=== PATIENT | female | born 1950 | race Caucasian/White ===

== ENCOUNTER 2017-09-07 08:10 | Day surgery (SDC) | payer MEDICARE, OTHER ==
[~2017-09-07 08:10] MED LIST: ACETAMINOPHEN500 M1 PO; AFINITOR10 MG PO; ARIMIDEX1 MG PO; AROMASIN25 MG PO; BACTRIM DS1 TAB PO; CALCIUM CITRATE PLUS PO; CEFADROXIL500 MG PO; CEPHALEXIN500 MG PO; CIMETIDINE400 MG PO; CLOBETASOL0.051 EX; D31000 UNIT PO; DOXYCYCL HYC100 MG PO; EQL POTASSIUM595 MG PO; FASLODEX250 M1 IM; FLUZONE SPLT1 M1 IM; IBRANCE PO; KEFLEX500 M1 PO; LORTAB 5/3255 MG PO; MULTI VIT PO; NO HOME MEDS; STOOL SOFTENER100 MG PO; TURKEY TAIL MUSHROOM PO; VITAMIN B-121000 MC1 SL; XGEVA SC; [UNRECOGNIZED DRUG - CODE] PO; [UNRECOGNIZED DRUG - OTHER] PO; [UNRECOGNIZED DRUG - OTHER] RE
[2017-09-07 12:14] VITALS: BP 121/57
[2017-09-07] MEDS ORDERED: NORCO1 TA2 PO (12:21)
[2017-09-07] MEDS ORDERED: KEFLEX500 MG PO (12:21)
== END 2017-09-07 12:45 | disposition home or self-care (01) ==
LOC: ORM 08:10
PROVIDERS: ATTEND Podiatrist Foot & Ankle Surgery
PROC: 0QBQ0ZZ Excision of Right Toe Phalanx, Open Approach (ICD-10-PCS; principal; 2017-09-07)
PROC: 0QBQ0ZZ Excision of Right Toe Phalanx, Open Approach (ICD-10-PCS; 2017-09-07)
PROC: 0LNV3ZZ Release Right Foot Tendon, Percutaneous Approach (ICD-10-PCS; 2017-09-07)
PROC: 0SN Lower Joints, Release (ICD-10-PCS; 2017-09-07)
PROC: 0HBMXZZ Excision of Right Foot Skin, External Approach (ICD-10-PCS; 2017-09-07)
DX: M20.41 Other hammer toe(s) (acquired), right foot (principal); L85.9 Epidermal thickening, unspecified

== ENCOUNTER 2017-10-26 08:18 | Emergency (ER) | payer MEDICARE, OTHER ==
[~2017-10-26] VITALS: Ht 157.5 cm; Wt 70.0 kg
[~2017-10-26 08:18] MED LIST changes: +KEFLEX500 MG PO; +NORCO1 TA2 PO
[2017-10-26] MEDS ORDERED: COREG3.125 MG PO (08:53)
[2017-10-26] MEDS ORDERED: TOBRADEX OPTH OU (09:05)
[2017-10-26 09:13] VITALS: BP 140/57
== END 2017-10-26 09:13 | disposition home or self-care (01) ==
LOC: ED 08:18
DX: L30.8 Other specified dermatitis (principal); H57.13 Ocular pain, bilateral

== ENCOUNTER 2018-07-07 13:12 | Emergency (ER) | payer MEDICARE, OTHER ==
[~2018-07-07] VITALS: Ht 157.5 cm; Wt 70.0 kg
[~2018-07-07 13:12] MED LIST changes: +COREG3.125 MG PO; +TOBRADEX OPTH OU
[2018-07-07] MEDS ORDERED: VITAMIN B CO PO (13:45)
[2018-07-07] MEDS ORDERED: IBRANCE (13:49)
[2018-07-07] MEDS ORDERED: IRON (13:52)
[2018-07-07] MEDS ORDERED: MEDDOSEPAK PO (14:44)
[2018-07-07] MEDS ORDERED: ZITHROMAX250 MG PO (14:44)
[2018-07-07 15:06] VITALS: BP 138/66
== END 2018-07-07 15:06 | disposition home or self-care (01) ==
LOC: ED 13:12
DX: J06.9 Acute upper respiratory infection, unspecified (principal); J02.9 Acute pharyngitis, unspecified

== ENCOUNTER → 2018-08-16 | Outpatient (REF) | payer MEDICARE, OTHER ==
[~2018-08-16] MED LIST changes: +IBRANCE; +IRON; +MEDDOSEPAK PO; +VITAMIN B CO PO; +ZITHROMAX250 MG PO
[2018-08-16 13:41] LABS: HEMATOCRIT 31.9 % (37.0-47.0); HEMOGLOBIN 10.4 g/dl (12.0-16.0); IMMATURE GRANULOCYTES 0.3 % (0.0-5.0); MEAN CORPUSCULAR HGB 34.6 pG CALC (26.0-32.0); MEAN CORPUSCULAR HGB CONC 32.6 g/L CALC (32.0-36.0); NEUT# 1.5 thou/uL (2.00-7.15); RED BLOOD COUNT 3.01 mill/uL (4.20-5.60); RED CELL DISTRI WIDTH 15.5 % (11.5-15.5)
[2018-08-16 13:52] LABS: ALBUMIN 4.4 g/dL (3.2-5.0); ALKALINE PHOSPHATASE 72 u/l (38-126); ANION GAP 16 (6-22 (CALC)); BILIRUBIN, TOTAL 0.3 mg/dL (0.0-1.4); BUN 17 mg/dL (8-23); BUN/CREATININE RATIO 20 (12-20 (CALC)); CARBON DIOXIDE 27 mmol/l (22-30); CHLORIDE 103 mmol/l (95-108); CREATININE 0.8 mg/dL (0.5-1.0); GFR > 60 ML/MIN (>=60 (CALC)); GFR FOR AFR.AMER. > 60 ML/MIN (>=60 (CALC)); POTASSIUM 4.8 mmol/l (3.5-5.1); SGOT/AST 24 u/l (9-36); SODIUM 141 mmol/l (137-146); TOTAL PROTEIN 7.5 g/dL (6.3-8.2)
== END | disposition home or self-care (01) ==
LOC: LAB 13:15
PROVIDERS: ATTEND Internal Medicine Hematology
DX: C50.411 Malignant neoplasm of upper-outer quadrant of right female breast (principal); C79.51 Secondary malignant neoplasm of bone; Z85.3 Personal history of malignant neoplasm of breast; Z85.42 Personal history of malignant neoplasm of other parts of uterus

== ENCOUNTER → 2018-09-13 | Outpatient (REF) | payer MEDICARE, OTHER ==
[2018-09-13 14:29] LABS: HEMATOCRIT 34.7 % (37.0-47.0); HEMOGLOBIN 11.2 g/dl (12.0-16.0); IMMATURE GRANULOCYTES 0.3 % (0.0-5.0); MEAN CELL VOLUME 106.1 fL CALC (80.0-100.0); MEAN CORPUSCULAR HGB 34.3 pG CALC (26.0-32.0); MEAN CORPUSCULAR HGB CONC 32.3 g/L CALC (32.0-36.0); NEUT# 1.65 thou/uL (2.00-7.15); RED BLOOD COUNT 3.27 mill/uL (4.20-5.60); RED CELL DISTRI WIDTH 15.6 % (11.5-15.5)
[2018-09-13 14:48] LABS: ALBUMIN 4.4 g/dL (3.2-5.0); ALKALINE PHOSPHATASE 77 u/l (38-126); ANION GAP 14 (6-22 (CALC)); BILIRUBIN, TOTAL 0.2 mg/dL (0.0-1.4); BUN 16 mg/dL (8-23); BUN/CREATININE RATIO 17 (12-20 (CALC)); CARBON DIOXIDE 27 mmol/l (22-30); CHLORIDE 105 mmol/l (95-108); CREATININE 0.9 mg/dL (0.5-1.0); GFR > 60 ML/MIN (>=60 (CALC)); GFR FOR AFR.AMER. > 60 ML/MIN (>=60 (CALC)); POTASSIUM 4.5 mmol/l (3.5-5.1); SGOT/AST 24 u/l (9-36); SODIUM 142 mmol/l (137-146); TOTAL PROTEIN 7.5 g/dL (6.3-8.2)
== END | disposition home or self-care (01) ==
LOC: LAB 13:28
PROVIDERS: ATTEND Internal Medicine Hematology
DX: C50.411 Malignant neoplasm of upper-outer quadrant of right female breast (principal); C79.51 Secondary malignant neoplasm of bone; Z85.42 Personal history of malignant neoplasm of other parts of uterus; Z85.3 Personal history of malignant neoplasm of breast

== ENCOUNTER 2022-01-25 06:29 | Inpatient (IN) | payer MEDICARE, OTHER ==
[2022-01-25] VITALS (40 sets, daily range): BP systolic 55–149; BP diastolic 23–128
[~2022-01-25] VITALS: Ht 157.5 cm; Wt 63.0 kg
[~2022-01-25 06:29] MED LIST changes: -IRON; +[UNRECOGNIZED DRUG - OTHER] PO
--- NOTE | 2022-01-25 06:35 | NUR ---
PT RO ROOM 6 VIA WHEELCHAIR ACCOMPANIED BY SPOUSE.
--- NOTE | 2022-01-25 06:35 | NUR ---
PT REPORTS THAT SHE IS BEING TREATED FOR BREAST CANCER BY DR. FOSTER AND IS BEING TREATED BY DR. HILL FOR AN IRREGULAR HEARTRATE. PT DENIES CHEST PAIN.
--- NOTE | 2022-01-25 07:00 | NUR ---
REPORT GIVEN TO DENISA GR.
--- NOTE | 2022-01-25 07:00 | NUR ---
ASSUMED CARE OF PT AT THIS TIME
[2022-01-25 07:05] LABS: HEMATOCRIT 32.4 % (37.0-47.0); HEMOGLOBIN 8.9 g/dl (12.0-16.0); IMMATURE GRANULOCYTES 2.4 % (0.0-5.0); MEAN CELL VOLUME 99.1 fL CALC (80.0-100.0); MEAN CORPUSCULAR HGB 27.2 pG CALC (26.0-32.0); MEAN CORPUSCULAR HGB CONC 27.5 g/dL CAL (32.0-36.0); NEUT# 1.98 thou/uL (2.00-7.15); RED BLOOD COUNT 3.27 mill/uL (4.20-5.60); RED CELL DISTRI WIDTH 26.3 % (11.5-15.5)
[2022-01-25] MEDS ORDERED: IBRANCE75 M1 PO (07:46)
[2022-01-25] MEDS ORDERED: CLOPIDOGREL75 MG PO (07:48)
[2022-01-25] MEDS ORDERED: COREG25 MG PO (07:48)
[2022-01-25] MEDS ORDERED: FULVESTRAN250 MG/5 M IM (07:50)
[2022-01-25] MEDS ORDERED: RETACRIT SC (07:50)
[2022-01-25] MEDS ORDERED: [UNRECOGNIZED DRUG - OTHER] (07:52)
[2022-01-25] MEDS ORDERED: [UNRECOGNIZED DRUG - OTHER] PO (07:53)
[2022-01-25] MEDS ORDERED: FOLIC ACID800 MCG PO (07:54)
[2022-01-25] MEDS ORDERED: MAGNESIUM200 MG PO (07:55)
[2022-01-25] MEDS ORDERED: SUPER B COMP PO (07:56)
[2022-01-25] MEDS ORDERED: BENADRY1 PO (07:57)
[2022-01-25] MEDS ORDERED: TYLENOL325 M2 (07:58)
--- NOTE | 2022-01-25 08:00 | NUR ---
Reassessment of patient completed. No distress noted.
[2022-01-25 08:13] LABS: ALBUMIN 3.9 g/dL (3.2-5.0); ALKALINE PHOSPHATASE 62 u/l (38-126); ANION GAP 9 (6-22 (CALC)); BUN 13 mg/dL (8-23); BUN/CREATININE RATIO 17 (12-20 (CALC)); CARBON DIOXIDE 26 mmol/l (22-30); CHLORIDE 107 mmol/l (95-108); CREATININE 0.8 mg/dL (0.5-1.0); GFR FOR AFR.AMER. > 60 ML/MIN (>=60 (CALC)); GFR OTHER RACES > 60 ML/MIN (>=60 (CALC)); POTASSIUM 4.6 mmol/l (3.5-5.1); SODIUM 138 mmol/l (137-146); TOTAL PROTEIN 6.7 g/dL (6.3-8.2)
[2022-01-25 08:15] LABS: BILIRUBIN, TOTAL 0.5 mg/dL (0.0-1.4); D-DIMER 2.15 mg/L (0.19-0.60); SGOT/AST 71 u/l (9-36)
[2022-01-25 08:16] LABS: INTERNATIONAL NORMALIZED RATIO 1.1 RATIO (0.7-1.3); PROTHROMBIN TIME 11.2 SECONDS (9.0-12.5)
[2022-01-25 08:25] LABS: MYOGLOBIN 41 ng/mL (0 - 62)
--- NOTE | 2022-01-25 09:00 | NUR ---
Reassessment of patient completed. No distress noted.
--- NOTE | 2022-01-25 10:05 | NUR ---
REPORT GIVEN TO JIM CRAWLEY AT THIS TIME
--- NOTE | 2022-01-25 11:00 | NUR ---
Reassessment of patient completed. No distress noted.
--- NOTE | 2022-01-25 12:00 | NUR ---
Reassessment of patient completed. No distress noted.
--- NOTE | 2022-01-25 13:00 | NUR ---
patient has been using bedside commode 1000ms total so far
--- NOTE | 2022-01-25 14:00 | NUR ---
Reassessment of patient completed. No distress noted.
--- NOTE | 2022-01-25 15:12 | NUR ---
PATIENT MOVED TO ICU 4 WITH REPORT GIVEN TO RECIEVED NUCLEAR PHARMACIST. PATIENT AMBULATED TO ROOM NO ADN.
--- NOTE | 2022-01-25 15:15 | NUR ---
TRANSFERED PT BIPAP FOR STANDBY TO ICU4 PT NOW ON 5L NC
[2022-01-25 15:20] LABS: URINE BILIRUBIN - DIPSTICK NEGATIVE (NEGATIVE); URINE BLOOD DIPSTICK TRACE-INTACT (NEGATIVE); URINE COLOR YELLOW; URINE GLUCOSE - DIPSTICK NEGATIVE (NEGATIVE); URINE KETONE NEGATIVE (NEGATIVE); URINE LEUK ESTERASE NEGATIVE (NEGATIVE); URINE PROTEIN - DIPSTICK NEGATIVE (NEG-TRACE); URINE SPECIFIC GRAVITY 1.015; URINE UROBILINOGEN - DIPSTICK 0.2 E.U./dL (0.2)
[2022-01-25 15:22] LABS: URINE NITRITE - DIPSTICK NEGATIVE (Negative)
--- NOTE | 2022-01-25 17:47 | NUR ---
pt belongings brought in by , now has pants, shirt, bra, shoes, and dentures, she denies any pain or SOB, she has been sinus with pvc's and O2 sat low to mid 90's on 3 Lpm via NC
--- NOTE | 2022-01-25 18:50 | NUR ---
REPORT RECIEVED FROM OUT-GOING SHIFT. PATIENT LYING IN BED ALERT ORIENTED X 3. DENIES PAIN OR DISCOMFORT. RESPIRATIONS EVEN AND UNLABORED. LUNG SOUNDS WITH CRACKLES HEARD THROUGHOUT S3 GALLOP WITH MITRAL REGURGE HEARD LSB 3RD ICS. ALL PULSES PALPAPLE NO EDEMA NOTED. PATIENT PLEASANT AND COOPERATIVE.
--- NOTE | 2022-01-25 19:50 | NUR ---
PATIENT AWAKE ALERT AND ORIENTED X3 NO RESPIRATORY DISTRESS NOTED. CRACKLES HEARD THROUGHOUT LUNG FIEILDS USING OXYGEN AT 3 LPM NC SATUATION 94%. PLAN OF CARE DISCUSSSED WITH PATIENT. DAUGHTER Vandana CALLED TO CHECK ON PATIENT UPDATED ON CONDITION.
--- NOTE | 2022-01-25 20:16 | NUR ---
PATIENT ASSESSMENT UNCHANGED ASSISTED TO BSC WITHOUT DIFFICULTY NO SOB NOTED. VOIDED 300 CC PALE YELLOW URINE RETURNED BACK TO BED WITHOUT DIFFICULTY.
--- NOTE | 2022-01-25 21:49 | NUR ---
RESTING QUIETLY IN BED RESPIRATIONS EVEN AND UNLABORED B/P 113/51 HR 87 SINUS RHYTHM ON MONITOR WILL CONTINUE TO MONITOR
[2022-01-26] VITALS (79 sets, daily range): BP systolic 44–227; BP diastolic 24–178
--- NOTE | 2022-01-26 | NUR ---
LYING IN BED WITH RELAXED POSTURE. RESPIRATIONS EVEN AND UNLABORED OXYGEN SATUATION 96% ON 3LPM NC. DENIES PAIN OR DISCOMFORT. HONING JOB SETTER SHOWS BRADYCARDIA AT REST WITH OCCATIONAL PVC MURMUR PRESENT.
--- NOTE | 2022-01-26 00:09 | NUR ---
ASSISTED TO BSC VOIDED WITHOUT DIFFICULTY. VOIDED 600 CC YELLOW CLEAR URINE. NO SOB NOTED WITH ACTIVITY ALERT AND ORIENTED X 3. DENIES PAIN OR DISCOMFORT. PERICARE PROVIDED AFTER VOIDING. NO SKIN BREAKDOWN NOTED . WILL CONTINUE TO MONITOR.
--- NOTE | 2022-01-26 02:00 | NUR ---
LYING IN BED WITH EYES CLOSED. POSTURE RELAXED. RESPIRATIONS EVEN AND UNLOBORED. B/P 110/56 HR 72 O2 SAT 97% EASILY AROUSABLE FOR ASSESSMENT NEURO SIGNS STABLE. WILL CONTINUE TO MONITOR.
--- NOTE | 2022-01-26 04:08 | NUR ---
RESTING QUIETLY IN BED WITH EYES CLOSED OXYGEN SATUATION 99% RESPIRATIONS EVEN AND UNLABORED.NO DISTRESS NOTED
[2022-01-26 05:45] LABS: HEMATOCRIT 29.6 % (37.0-47.0); HEMOGLOBIN 8.5 g/dl (12.0-16.0); MEAN CELL VOLUME 96.7 fL CALC (80.0-100.0); MEAN CORPUSCULAR HGB 27.8 pG CALC (26.0-32.0); MEAN CORPUSCULAR HGB CONC 28.7 g/dL CAL (32.0-36.0); RED BLOOD COUNT 3.06 mill/uL (4.20-5.60); RED CELL DISTRI WIDTH 25.6 % (11.5-15.5)
--- NOTE | 2022-01-26 06:00 | NUR ---
AWAKE AND ALERT AND ORIENTED X3 RESPIRATIONS EVEN AND UNLABORED O2 SAT 99%
[2022-01-26 06:15] LABS: ANION GAP 7 (6-22 (CALC)); BUN 20 mg/dL (8-23); BUN/CREATININE RATIO 31 (12-20 (CALC)); CALCULATED LDLCHOLESTEROL 53 mg/dL (62-129 (CALC)); CARBON DIOXIDE 31 mmol/l (22-30); CHLORIDE 105 mmol/l (95-108); CHOLESTEROL HDL RATIO 2.7 (<4.4 (CALC)); CREATININE 0.6 mg/dL (0.5-1.0); GFR FOR AFR.AMER. > 60 ML/MIN (>=60 (CALC)); GFR OTHER RACES > 60 ML/MIN (>=60 (CALC)); HDL CHOLESTEROL 46 mg/dL (>=40); MAGNESIUM 2.4 mg/dL (1.6-2.3); POTASSIUM 3.7 mmol/l (3.5-5.1); SODIUM 139 mmol/l (137-146); TOTAL CHOLESTEROL 122 mg/dl (0-199); TOTAL TRIGLYCERIDES 120 mg/dl (30-149); VLDL CHOLESTROL 24 mg/dl (0-48 (CALC))
--- NOTE | 2022-01-26 09:25 | NUR ---
pt up in chair for breakfast, has been using BSC, US done this AM, weaning oxygen
[2022-01-26] MEDS ORDERED: BENADRYL ALLERG25 MG PO (10:48)
[2022-01-26] MEDS ORDERED: SUPER B-COMPLEX PO (10:55)
--- NOTE | 2022-01-26 12:01 | NUR ---
pt up in chair for lunch, denies needs at this time
--- NOTE | 2022-01-26 19:20 | NUR ---
awake. denies resp diff. phototypesetting equipment monitor shows sinus rhythm pvcs. #20 lt hand saline lock. remains on fluid restriction. voids per bsc. fall precautions cont.
--- NOTE | 2022-01-26 21:00 | NUR ---
up to bsc. rosales well.
[2022-01-27] VITALS (13 sets, daily range): BP systolic 91–120; BP diastolic 40–76
--- NOTE | 2022-01-27 00:01 | NUR ---
eyes closed. no distress. nurse monitoring shows sinus rhythm pvcs.
--- NOTE | 2022-01-27 02:00 | NUR ---
resting quietly. resps even & unlabored.
--- NOTE | 2022-01-27 03:30 | NUR ---
lab here. blood drawn.
[2022-01-27 05:33] LABS: HEMATOCRIT 31.2 % (37.0-47.0); HEMOGLOBIN 8.9 g/dl (12.0-16.0); MEAN CELL VOLUME 97.2 fL CALC (80.0-100.0); MEAN CORPUSCULAR HGB 27.7 pG CALC (26.0-32.0); MEAN CORPUSCULAR HGB CONC 28.5 g/dL CAL (32.0-36.0); RED BLOOD COUNT 3.21 mill/uL (4.20-5.60); RED CELL DISTRI WIDTH 25.9 % (11.5-15.5)
[2022-01-27 05:34] LABS: BUN 26 mg/dL (8-23); BUN/CREATININE RATIO 31 (12-20 (CALC)); CARBON DIOXIDE 31 mmol/l (22-30); CHLORIDE 102 mmol/l (95-108); CREATININE 0.8 mg/dL (0.5-1.0); GFR FOR AFR.AMER. > 60 ML/MIN (>=60 (CALC)); GFR OTHER RACES > 60 ML/MIN (>=60 (CALC)); MAGNESIUM 2.2 mg/dL (1.6-2.3); POTASSIUM 3.8 mmol/l (3.5-5.1)
[2022-01-27 05:36] LABS: ANION GAP 8 (6-22 (CALC)); SODIUM 137 mmol/l (137-146)
--- NOTE | 2022-01-27 05:53 | NUR ---
awake. no c/o voiced. pt aware of transfer to [facility] / [facility].
--- NOTE | 2022-01-27 06:36 | NUR ---
transferred to [facility] 261 per w/c on tele. report given to anu riley.
--- NOTE | 2022-01-27 06:40 | NUR ---
PATIENT TRANSFERED TO ROOM 261 FROM ICU BED 4, VIA WHEELCHAIR BY WRITTER.
--- NOTE | 2022-01-27 07:00 | NUR ---
PT ARRIVED VIA WC WITH DENISA RODRÍGUEZENATTED PT TO ROOM AND CALL [facility]. STATES NO PAIN. ASSESSMENT ALLOWED. SEE SHIFT ASSESSMENT REVIEW. BREATHING EVEN AND UNLABORED. TELE MONITOR IN PLACE. CONTINOUS MONITORING PER ED. FALL/SAFTEY PRECAUTION IN PLACE. CALL LIGHT WITHIN REACH
--- NOTE | 2022-01-27 07:55 | NUR ---
Patient is screened for rehab intervention and may benefit from PT and OT consults for energy conservation and strengthening if medical agrees
[2022-01-27] MEDS ORDERED: LASIX 20 MG TAB20 MG PO (09:43)
[2022-01-27] MEDS ORDERED: ZITHROMAX250 MG PO (09:45)
--- NOTE | 2022-01-27 12:53 | NUR ---
PT RESTING IN BED. WAITING FOR DC. STATES NOPAIN. NO DISTRESS NOTED. BREATHIGN EVEN AND UNLABORED. FALL/SAFTEY PRECAUTION IN PLACE. CALL LIGHT WITHIN REACH
--- NOTE | 2022-01-27 13:46 | NUR ---
Discharge instructions given. Patient verbalizes understanding of same. Discharged in stable condition via Wheelchair to Home with staff. All belongings sent with pt.
== END 2022-01-27 13:46 | disposition home health service (06) | DRG 292 ==
LOC: ED 06:29 → ED-I 11:00 → ED 12:22 → ICU 12:32 → MS2 01-27 06:57
PROVIDERS: Family Medicine; ADMIT Internal Medicine; ATTEND Internal Medicine
PROC: 5A09357 Assistance with Respiratory Ventilation, Less than 24 Consecutive Hours, Continuous Positive Airway Pressure (ICD-10-PCS; principal; 2022-01-25)
DX: I50.9 Heart failure, unspecified (principal); C79.51 Secondary malignant neoplasm of bone; J40 Bronchitis, not specified as acute or chronic; C50.919 Malignant neoplasm of unspecified site of unspecified female breast; D63.0 Anemia in neoplastic disease; I25.10 Atherosclerotic heart disease of native coronary artery without angina pectoris; Z79.899 Other long term (current) drug therapy; Z95.820 Peripheral vascular angioplasty status with implants and grafts; Z20.822 Contact with and (suspected) exposure to COVID-19; Z85.3 Personal history of malignant neoplasm of breast; C50.411 Malignant neoplasm of upper-outer quadrant of right female breast; Z85.42 Personal history of malignant neoplasm of other parts of uterus; D50.9 Iron deficiency anemia, unspecified; D64.81 Anemia due to antineoplastic chemotherapy
CPT/HCPCS: A9503; J1650; Q5106 EC; Q9967; S0073

== ENCOUNTER 2022-06-23 10:35 | Emergency (ER) | payer MEDICARE, OTHER ==
[~2022-06-23] VITALS: Ht 157.5 cm; Wt 68.0 kg
[2022-06-23] VITALS (22 sets, daily range): BP systolic 82–165; BP diastolic 41–137
[~2022-06-23 10:35] MED LIST changes: +BENADRY1 PO; +BENADRYL ALLERG25 MG PO; +CLOPIDOGREL75 MG PO; +COREG25 MG PO; +FOLIC ACID800 MCG PO; +FULVESTRAN250 MG/5 M IM; +IBRANCE75 M1 PO; +LASIX 20 MG TAB20 MG PO; +MAGNESIUM200 MG PO; +RETACRIT SC; +SUPER B COMP PO; +SUPER B-COMPLEX PO; +TYLENOL325 M2; +[UNRECOGNIZED DRUG - OTHER]; +[UNRECOGNIZED DRUG - OTHER] PO
[2022-06-23 11:24] LABS: BASO% 11.8 % (0-3); HEMATOCRIT 28.1 % (37.0-47.0); IMMATURE GRANULOCYTES 5.9 % (0.0-5.0); LYMPH% 76.5 % (15-41); MEAN CELL VOLUME 89.8 fL CALC (80.0-100.0); MEAN CORPUSCULAR HGB 28.8 pG CALC (26.0-32.0); NEUT# 0.01 thou/uL (2.00-7.15); NEUT% 5.8 % (42-76); RED BLOOD COUNT 3.13 mill/uL (4.20-5.60); RED CELL DISTRI WIDTH 22.6 % (11.5-15.5)
[2022-06-23 11:35] LABS: POTASSIUM 4.3 mmol/l (3.5-5.1); TOTAL PROTEIN 6.2 g/dL (6.3-8.2)
[2022-06-23 11:56] LABS: ALBUMIN 3.1 g/dL (3.2-5.0); BILIRUBIN, TOTAL 1.6 mg/dL (0.0-1.4); CREATININE 1.8 mg/dL (0.5-1.0)
[2022-06-23 12:22] LABS: URINE BILIRUBIN - DIPSTICK NEGATIVE (NEGATIVE); URINE BLOOD DIPSTICK MODERATE (NEGATIVE); URINE GLUCOSE - DIPSTICK NEGATIVE (NEGATIVE); URINE KETONE NEGATIVE (NEGATIVE); URINE LEUK ESTERASE NEGATIVE (NEGATIVE); URINE PROTEIN - DIPSTICK 100 mg/dL (NEG-TRACE); URINE SPECIFIC GRAVITY 1.025; URINE UROBILINOGEN - DIPSTICK 0.2 E.U./dL (0.2)
[2022-06-23 12:27] LABS: URINE COLOR DK. YELLOW; URINE NITRITE - DIPSTICK NEGATIVE (Negative)
[2022-06-23 12:29] LABS: URINE EPITHELIAL CELLS MODERATE EPI/hpf (0-FEW)
== END 2022-06-23 16:00 | disposition expired ==
LOC: ED 10:35
PROVIDERS: Family Medicine
PROC: 0T9B70Z Drainage of Bladder with Drainage Device, Via Natural or Artificial Opening (ICD-10-PCS; principal; 2022-06-23)
PROC: 05HM33Z Insertion of Infusion Device into Right Internal Jugular Vein, Percutaneous Approach (ICD-10-PCS; 2022-06-23)
PROC: 0BH17EZ Insertion of Endotracheal Airway into Trachea, Via Natural or Artificial Opening (ICD-10-PCS; 2022-06-23)
PROC: 5A1935Z Respiratory Ventilation, Less than 24 Consecutive Hours (ICD-10-PCS; 2022-06-23)
PROC: 5A12012 Performance of Cardiac Output, Single, Manual (ICD-10-PCS; 2022-06-23)
DX: A41.9 Sepsis, unspecified organism (principal); I46.9 Cardiac arrest, cause unspecified; R65.21 Severe sepsis with septic shock; C95.90 Leukemia, unspecified not having achieved remission; D70.9 Neutropenia, unspecified; Z85.3 Personal history of malignant neoplasm of breast; Z20.822 Contact with and (suspected) exposure to COVID-19; Z66 Do not resuscitate